=== PATIENT | male | born 1950 | race African-American/Black ===

== ENCOUNTER 2019-02-24 21:07 | Emergency (ER) | payer MEDICARE, OTHER ==
[~2019-02-24] VITALS: Ht 170.2 cm; Wt 79.4 kg
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
--- NOTE | 2019-02-24 23:23 | NUR ---
LEFT FOR CT
--- NOTE | 2019-02-25 00:43 | NUR ---
Patient is resting comfortably in bed with eyes closed. Easily aroused. VSS
--- NOTE | 2019-02-25 01:40 | NUR ---
Patient discharged to home in stable condition. Rx and Written and verbal after care instructions given. Patient verbalizes understanding of instruction. pt was provided with the cd of his CT scan.
[2019-02-25 01:41] VITALS: BP 141/98
== END 2019-02-25 01:42 | disposition home or self-care (01) ==
LOC: ER 21:10
DX: S02.2XXA Fracture of nasal bones, initial encounter for closed fracture (principal); S02.40CA Maxillary fracture, right side, initial encounter for closed fracture; R51 Headache; F17.200 Nicotine dependence, unspecified, uncomplicated; Z98.890 Other specified postprocedural states; Z88.0 Allergy status to penicillin; Y08.89XA Assault by other specified means, initial encounter; Y93.89 Activity, other specified; Y92.488 Other paved roadways as the place of occurrence of the external cause; Y99.8 Other external cause status
CPT/HCPCS: 70450-TC; 70486-TC

== ENCOUNTER 2019-06-23 23:11 | Inpatient (IN) | payer MEDICARE, MEDICAID ==
[~2019-06-23] VITALS: Ht 170.2 cm; Wt 84.8 kg
--- NOTE | 2019-06-23 23:20 | NUR ---
BIB EMS C/O SEIZURE, (+) ORAL TRAUMA, (-) BOWEL OR BLADDER INCONTINENCE. PT POST ICTAL, AAOX2. PLACED ON A MONITOR. VSS. WILL CONT TO MONITOR ,
[2019-06-23] MEDS ORDERED: LEVETIRACETAM (500MG) 500 MG in IV NS 0.9% 100 ML IV ONE (23:30)
[2019-06-23] MEDS ORDERED: LORAZEPAM INJ 2 MG/ML VIAL IVP ONE (23:30)
[2019-06-23] MEDS ORDERED: IV NS 0.9% 1,000 ML BAG IV ONE (23:30)
[2019-06-23 23:32] LABS: BASOPHILS # (AUTO) 0.1 /CMM (0.0-0.2); BASOPHILS % (AUTO) 0.9 % (0.0-2.0); EOSINOPHILS % (AUTO) 2.2 % (0.0-6.0); HEMATOCRIT 44 % (39-51); HEMOGLOBIN 14.8 g/dL (13.5-17.5); LYMPHOCYTES # (AUTO) 3.4 /CMM (0.8-4.8); LYMPHOCYTES % (AUTO) 42.1 % (20.0-44.0); MEAN CORPUSCULAR HGB CONC 34 g/dl (31.0-36.0); MEAN CORPUSCULAR VOLUME 99 fL (80-96); MONOCYTES # (AUTO) 0.8 /CMM (0.1-1.30); MONOCYTES % (AUTO) 10.4 % (2.0-12.0); NEUTROPHILS # (AUTO) 3.6 /CMM (1.8-8.9); NEUTROPHILS % (AUTO) 44.4 % (43.0-81.0); PLATELET COUNT (AUTO) 232 /CMM (150-450); RED BLOOD CELL COUNT(AUTO) 4.46 MIL/uL (4.5-6.0)
[2019-06-23 23:42] LABS: CARBON DIOXIDE 23 mmol/L (21-32); CHLORIDE 103 mmol/L (98-107); CREATININE 1.4 mg/dL (0.6-1.3); GLUCOSE 173 mg/dL (74-106); POTASSIUM 3.8 mmol/L (3.5-5.1); SODIUM SERUM 140 mmol/L (136-145); UREA NITROGEN, BLOOD 20 mg/dL (7-18)
[2019-06-23] MEDS ORDERED: LEVETIRACETAM (500MG) 500 MG/5 ML VIAL IV ONE (23:46)
[2019-06-23] MEDS ORDERED: LORAZEPAM INJ 2 MG/ML VIAL ONE (23:46)
[2019-06-23 23:51] LABS: ALANINE AMINOTRANSFERASE 47 U/L (12-78); ALBUMIN 3.5 g/dL (3.4-5.0); ALCOHOL, BLOOD < 3 mg/dL (0-0); ALKALINE PHOSPHATASE 98 U/L (46-116); ASPARTATE AMINOTRANSFERASE 27 U/L (15-37); BILIRUBIN,DIRECT 0.1 mg/dL (0.0-0.2); BILIRUBIN,TOTAL 0.2 mg/dL (0.2-1.0)
[2019-06-24] MEDS ORDERED: ASPIRIN 325 MG TABLET PO ONE
--- NOTE | 2019-06-24 00:31 | NUR ---
TELE 806-4
--- NOTE | 2019-06-24 00:32 | NUR ---
PER PT'S SISTER , HE IS NOT TAKING ANY MEDICATION AT HOME
--- NOTE | 2019-06-24 00:36 | NUR ---
REPORT GIVEN TO ANASTACIO ON THID FLOOR
--- NOTE | 2019-06-24 00:51 | NUR ---
SISTER, DERRELL: [facility]
[2019-06-24] MEDS ORDERED: IV D5/0.45 NACL 1,000 ML IV PRN (01:27)
[2019-06-24] MEDS ORDERED: Z GUARD REMEDY 2 OZ OINT TP PRN (01:30)
[2019-06-24] MEDS ORDERED: ONDANSETRON HCL/PF 4 MG/2 ML VIAL IVP PRN (01:30)
[2019-06-24] MEDS ORDERED: ACETAMINOPHEN 650 MG/SUPP.RECT RC PRN (01:30)
[2019-06-24] MEDS ORDERED: LORAZEPAM INJ 2 MG/ML VIAL IV PRN (01:30)
[2019-06-24] MEDS ORDERED: MORPHINE SULFATE INJ 2 MG/ML DISP.SYRIN IV PRN (01:30)
[2019-06-24 01:40] VITALS: BP 148/97
--- NOTE | 2019-06-24 01:50 | NUR ---
PT WAS TRANSFERRED TO 326- UNDER ACLS
[2019-06-24] MEDS ORDERED: LEVETIRACETAM (500MG) 500 MG in IV NS 0.9% 100 ML IV SCH ×2 (02:00→11:00)
--- NOTE | 2019-06-24 02:00 | NUR ---
MILK PICKUP DRIVERASSISTED LIVING HOME DIRECTOR NOTES RECEIVED PATIENT FROM ER VIA RNEY ACCOMPANIED BY ER STAFF. ALERT AND ORIENTED X 2, VERBALLY RESPONSIVE BUT UNCOOPERATIVE ON ASSESSMENT. BREATHING REGULAR AND UNLABORED ON ROOM AIR. RIGHT FOREARM G20 IV LINE INTACT AND PATENT, FLUSHING WELL WITH NO BLEEDING OR S/S OF INFECTION/INFILTRATION NOTED. ATTACHED TO ORACLE OBIEE DEVELOPER WITH NSR WITH ST DEPRESSION AT 89bpm. BODY ASSESSMENT DONE BUT UNABLE TO ASSESS LOWER PART OF THE BODY PATIENT REFUSED TO REMOVE HIS PANTS. RISK AND BENEFITS EXPLAINED. ON SEIZURE PRECAUTION, SIDE RAILS PADDED WITH BLANKETS. NPO ADVISED. INITIAL VITAL SIGNS TAKEN, BELONGINGS CHECKED BY REAMING MACHINE OPERATOR. BED LOW AND LOCKED ON SEMI FOWLERS POSITION. CALL LIGHT IN REACH. WILL CONTINUE TO MONITOR.
[2019-06-24 02:42] VITALS: BP 148/97
--- NOTE | 2019-06-24 03:30 | NUR ---
GRIEVANCE AND APPEALS COORDINATOR NOTES STARTED ON D5 1/2 NS AT 75CC/HR, INFUSING WELL. WILL CONTINUE TO MONITOR.
[2019-06-24 04:00] VITALS: BP 117/69
--- NOTE | 2019-06-24 06:17 | NUR ---
COORDINATOR OF PLACEMENT CLOSING NOTES PATIENT IN BED ALERT AND ORIENTED X 3. AFEBRILE WITH NO S/S OF DISTRESS OBSERVED. MAINTAINED NPO AND ATTACHED TO LAUNCH OPERATOR WITH NSR WITH ST DEPRESSION AT 88bpm. NO COMPLAINTS OF PAIN/DISCOMFORT REPORTED WITHIN THE SHIFT. BED LOW AND LOCKED ON SEMI FOWLERS POSITION. CALL LIGHT IN REACH. WILL ENDORSE TO MORNING SHIFT FOR ZBIGNIEW.
--- NOTE | 2019-06-24 07:35 | NUR ---
REAL ESTATE PARALEGAL OPENING NOTES: RECEIVED PATIENT RESTING IN BED COMFORTABLY. PATIENT IS STABLE AND NO S/S OF DISTRESS OR SOB. BREATHING REGULAR AND UNLABORED ON ROOM AIR. A/O X 2, VERBALLY RESPONSIVE. ABLE TO MAKE NEEDS KNOWN. NO COMPLAINS OF PAIN AT THIS TIME. IV ACCESS ON THE RIGHT FOREARM G20 IS CLEAN, INTACT AND PATENT, FLUSHING WELL WITH NO S/S OF INFECTION/INFILTRATION NOTED. ON TELE MONITORING WITH READING OF SR WITH HR OF 70'S. ON SEIZURE PRECAUTION, SIDE RAILS PADDED WITH BLANKETS. ON NPO DIET. SAFETY MEASURES ARE IN PLACE WITH BED IN LOW AND LOCKED ON SEMI FOWLERS POSITION. CALL LIGHT IN REACH. WILL CONTINUE TO MONITOR ACCORDINGLY.
[2019-06-24 08:00] VITALS: BP 128/78
[2019-06-24] MEDS ORDERED: ASPIRIN 81 MG TAB.CHEW PO SCH (09:00)
[2019-06-24] MEDS ORDERED: IV NS 0.9% 1,000 ML IV PRN (09:11)
[2019-06-24] MEDS ORDERED: ATORVASTATIN 10 MG TABLET PO SCH (09:30)
[2019-06-24] MEDS ORDERED: METOPROLOL TARTRATE 50 MG TABLET PO SCH (09:30)
[2019-06-24] MEDS ORDERED: ENOXAPARIN SODIUM 40 MG/0.4 ML DISP.SYRIN SQ SCH (09:30)
[2019-06-24 11:00] VITALS: BP 128/78
[2019-06-24 13:16] LABS: BASOPHILS # (AUTO) 0.1 /CMM (0.0-0.2); BASOPHILS % (AUTO) 1.3 % (0.0-2.0); EOSINOPHILS % (AUTO) 2.2 % (0.0-6.0); HEMATOCRIT 43 % (39-51); HEMOGLOBIN 14.4 g/dL (13.5-17.5); LYMPHOCYTES # (AUTO) 1.8 /CMM (0.8-4.8); LYMPHOCYTES % (AUTO) 28.7 % (20.0-44.0); MEAN CORPUSCULAR HGB CONC 34 g/dl (31.0-36.0); MEAN CORPUSCULAR VOLUME 98 fL (80-96); MONOCYTES # (AUTO) 0.7 /CMM (0.1-1.30); MONOCYTES % (AUTO) 11.7 % (2.0-12.0); NEUTROPHILS # (AUTO) 3.6 /CMM (1.8-8.9); NEUTROPHILS % (AUTO) 56.1 % (43.0-81.0); PLATELET COUNT (AUTO) 239 /CMM (150-450); RED BLOOD CELL COUNT(AUTO) 4.33 MIL/uL (4.5-6.0); WHITE BLOOD COUNT (AUTO) 6.4 K/uL (4.3-11.0)
[2019-06-24 13:28] LABS: ALBUMIN 3.1 g/dL (3.4-5.0); BILIRUBIN,TOTAL 0.4 mg/dL (0.2-1.0); CALCIUM, SERUM 8.5 mg/dL (8.5-10.1); PHOSPHORUS 2.6 mg/dL (2.5-4.9); POTASSIUM 3.8 mmol/L (3.5-5.1); TOTAL PROTEIN, SERUM 7.4 g/dL (6.4-8.2)
[2019-06-24 13:38] LABS: THYROID STIMULATING HORMONE 0.958 uIU/mL (0.358-3.74)
[2019-06-24] MEDS ORDERED: IOHEXOL-350 100 ML VIAL IV ONE (14:05)
[2019-06-24] MEDS ORDERED: CT SWABBABLE VALVE TRANS SET 1 EA INFUS.SET MC ONE (14:08)
[2019-06-24] MEDS ORDERED: IV NS 0.9% 250 ML IV ONE (14:08)
[2019-06-24] MEDS ORDERED: NITROGLYCERIN 0.4 MG/TAB BOTTLE SL ONE (14:30)
[2019-06-24] MEDS ORDERED: METOPROLOL TARTRATE INJ 5 MG/5 ML AMPUL IVP PRN (14:30)
--- NOTE | 2019-06-24 14:32 | NUR ---
Patient refused Nitro during the coronary CTA procedure.
[2019-06-24 15:09] LABS: THYROID STIMULATING HORMONE 0.975 uIU/mL (0.358-3.74)
--- NOTE | 2019-06-24 17:30 | NUR ---
RAILROAD MECHANIC NOTES PATIENT REQUESTS TO LEAVE AMA DESPITE EXPLANATION OF RISKS AND BENEFITS, STATES FRIEND WILL COME TO PICK HIM UP.
--- NOTE | 2019-06-24 17:44 | NUR ---
EDUCATION FACULTY MEMBER NOTES PATIENT SIGNED FORM TO LEAVE AMA DESPITE EXPLANATION OF RISKS. FRIEND AT BEDSIDE TRIED TO CONVINCED PATIENT TO STAY, ALSO PATIENT SPOKE TO SISTER PATIENT DEMANDS TO LEAVE AMA. PERIPHERAL IV REMOVED WITH MINIMAL BLEEDING, ID BAND REMOVED PATIENT LEFT WITH FRIEND.
[2019-06-25] MEDS ORDERED: ASPIRIN EC 81 MG TABLET.DR PO SCH (09:00)
[2019-06-25 11:58] LABS: *SPE A/G RATIO 0.8 (0.7-1.7); *SPE ALPHA-1-GLOBULIN 0.3 g/dL (0.0-0.4); *SPE ALPHA-2-GLOBULIN 0.7 g/dL (0.4-1.0); *SPE GLOBULIN, TOTAL 3.6 g/dL (2.2-3.9); *SPE M-SPIKE Not Observed g/dL (Not Observed); *SPEGAMMA GLOBULIN 1.6 g/dL (0.4-1.8)
== END 2019-06-24 18:19 | disposition left against medical advice (07) | DRG 100 ==
LOC: ER 23:13 → TELE 06-24 01:20
PROVIDERS: ADMIT Hospitalist; ATTEND Hospitalist
DX: G40.409 Other generalized epilepsy and epileptic syndromes, not intractable, without status epilepticus (principal); I21.A1 Myocardial infarction type 2; N17.0 Acute kidney failure with tubular necrosis; E44.1 Mild protein-calorie malnutrition; I10 Essential (primary) hypertension; Z88.0 Allergy status to penicillin; E78.5 Hyperlipidemia, unspecified; F17.200 Nicotine dependence, unspecified, uncomplicated; Z82.49 Family history of ischemic heart disease and other diseases of the circulatory system
CPT/HCPCS: 36415; 70450-TC; 71045-TC; 75574; 80048-TC; 80053-TC; 80061-TC; 80076-TC; 83735-TC; 83880; 84100-TC; 84155; 84165; 84439-TC; 84443-TC; 84484-TC; 85025-TC; 87081-TC; 95819-TC; G0378; G0480; J1650; J1953; J2060; J3490; J7030; J7050; Q9967

== ENCOUNTER 2019-06-24 19:27 | Inpatient (IN) | payer MEDICARE, MEDICAID ==
[~2019-06-24] VITALS: Ht 170.2 cm; Wt 80.3 kg
--- NOTE | 2019-06-24 19:50 | NUR ---
BIBS.C/O "ADMITTED LAST NIGHT FOR NEW ONSET SZ AND ELEVATED TROPONIN. C/O ABD PAIN"-SOB NOTED. VSS. AOX4.
[2019-06-24 20:21] LABS: BASOPHILS % (AUTO) 0.5 % (0.0-2.0); EOSINOPHILS % (AUTO) 1.7 % (0.0-6.0); HEMATOCRIT 42 % (39-51); HEMOGLOBIN 14.2 g/dL (13.5-17.5); LYMPHOCYTES # (AUTO) 2.3 /CMM (0.8-4.8); LYMPHOCYTES % (AUTO) 30.6 % (20.0-44.0); MEAN CORPUSCULAR HGB CONC 34 g/dl (31.0-36.0); MEAN CORPUSCULAR VOLUME 99 fL (80-96); MONOCYTES # (AUTO) 0.8 /CMM (0.1-1.30); MONOCYTES % (AUTO) 11.2 % (2.0-12.0); NEUTROPHILS # (AUTO) 4.2 /CMM (1.8-8.9); PLATELET COUNT (AUTO) 228 /CMM (150-450); RED BLOOD CELL COUNT(AUTO) 4.25 MIL/uL (4.5-6.0); WHITE BLOOD COUNT (AUTO) 7.6 K/uL (4.3-11.0)
[2019-06-24 20:47] LABS: ALBUMIN 3.2 g/dL (3.4-5.0); BILIRUBIN,TOTAL 0.3 mg/dL (0.2-1.0); CALCIUM, SERUM 8.4 mg/dL (8.5-10.1); POTASSIUM 3.9 mmol/L (3.5-5.1); TOTAL PROTEIN, SERUM 7.6 g/dL (6.4-8.2)
--- NOTE | 2019-06-24 20:59 | NUR ---
EPIC GLUE SPREADING MACHINE OPERATOR PAGED
[2019-06-24] MEDS ORDERED: ASPIRIN 325 MG TABLET PO ONE (21:00)
--- NOTE | 2019-06-24 21:25 | NUR ---
RECIEVED BED 109
[2019-06-24] MEDS ORDERED: MORPHINE SULFATE INJ 2 MG/ML DISP.SYRIN IV PRN (21:30)
[2019-06-24] MEDS: METOPROLOL TARTRATE 50 MG TABLET PO SCH (21:30)
[2019-06-24] MEDS ORDERED: MAG HYDROX/AL HYDROX/SIMETH 30 ML UDC PO PRN (21:30)
[2019-06-24] MEDS ORDERED: NITROGLYCERIN 0.4 MG/TAB BOTTLE SL ONE (21:30)
[2019-06-24] MEDS ORDERED: HYDROCODONE/APAP 5/325MG 1 EACH TABLET PO PRN (21:30)
[2019-06-24] MEDS ORDERED: MAGNESIUM HYDROXIDE 30 ML UDC PO PRN (21:30)
[2019-06-24] MEDS ORDERED: ACETAMINOPHEN 325 MG TABLET PO PRN (21:30)
[2019-06-24] MEDS ORDERED: ONDANSETRON HCL/PF 4 MG/2 ML VIAL IVP PRN (21:30)
--- NOTE | 2019-06-24 21:38 | NUR ---
REPORT GIVEN TO BRANDAN
[2019-06-24 22:00] VITALS: BP 125/84
[2019-06-24] MEDS ORDERED: ATORVASTATIN 10 MG TABLET PO SCH (22:00)
--- NOTE | 2019-06-24 22:30 | NUR ---
MANUFACTURING PROJECT ENGINEER ADMITTING NOTES RECEIVED PATIENT FROM ER & ADMITTED TO ROOM 109 W/ DX ABDOMINAL PAIN & ELEVATED TROPONIN UNDER CARE OF DEANNA. PATIENT NOTED W/ STEADY GAIT WHEN TRANSFERRING FROM RNEY TO BED. A/A/O X3 & ABLE TO ANSWER QUESTIONS & FOLLOW SIMPLE COMMANDS. BREATHING EVEN & UNLABORED, TOLERATING ROOM AIR. DENIES ANY SOB OR DIFFICULTY BREATHING. SINUS RHYTHM-SINUS SHERRY NOTED ON TELEMONITOR, HR 56. LEFT AC IV #18 INTACT & PATENT W/ DRESSING CDI & SALINE LOCKED. NO SIGNS OF INFILTRATION NOTED. DENIES ANY CHEST PAIN OR DISCOMFORT. DENIES ANY N/V/D. STATES THAT ABDOMINAL PAIN GOT BETTER. SKIN ASSESSMENT DONE & ORIENTED TO ROOM & STAFF. SAFETY MEASURES IN PLACE W/ SIDE RAILS UP & BED ALARM ON. CALL LIGHT PLACED WITHIN REACH & INSTRUCTED TO CALL FOR ASSISTANCE. WILL CONTINUE TO MONITOR & CARRY OUT ADMITTING ORDERS.
--- NOTE | 2019-06-24 22:45 | NUR ---
CONTROLLED AREA CHECKER NOTES NOTED W/ EPISODES OF BRADYCARDIA IN 50S & DENIES ANY CHEST PAIN OR DISCOMFORT. INFORMED DEANNA, DETECTIVE INVESTIGATOR THAT SUBLINGUAL NITRO & METOPROLOL HELD & PER OKAY TO HOLD @ THIS TIME & WILL RE-EVALUATE IN AM.
[2019-06-24 23:31] VITALS: BP 125/84
[2019-06-25] VITALS (21 sets, daily range): BP systolic 115–153; BP diastolic 42–97
--- NOTE | 2019-06-25 08:04 | NUR ---
RN OPENING NOTES PT RESTING IN BED. PT IS A/A X3. PT DENIES ANY SOB OR PAIN AT PRESENT MOMENT. PT HR IS SB 58 CURRENTLY. PT STATES HE IS FEELING WELL RESTED. BED IS LOCKED AND IN LOWEST POSITION WITH CALL LIGHT IN REACH. WILL CONTINUE TO MONITOR.
--- NOTE | 2019-06-25 08:08 | NUR ---
SPOKE WITH ESTEFANIA MAC PT IS TO BE NPO BY DR. JUARES.
[2019-06-25] MEDS: PANTOPRAZOLE 40 MG TABLET.DR PO SCH (08:12)
[2019-06-25] MEDS: ASPIRIN 81 MG TAB.CHEW PO SCH (08:12)
[2019-06-25] MEDS: METOPROLOL TARTRATE 50 MG TABLET PO SCH ×2 (09:30→21:23)
[2019-06-25 10:36] LABS: HEMOGLOBIN 15.1 g/dL (13.5-17.5); PLATELET COUNT (AUTO) 228 /CMM (150-450)
[2019-06-25 10:42] LABS: BASOPHILS # (AUTO) 0.1 /CMM (0.0-0.2); BASOPHILS % (AUTO) 1.2 % (0.0-2.0); EOSINOPHILS % (AUTO) 1.8 % (0.0-6.0); HEMATOCRIT 44 % (39-51); LYMPHOCYTES # (AUTO) 1.9 /CMM (0.8-4.8); LYMPHOCYTES % (AUTO) 34.7 % (20.0-44.0); MEAN CORPUSCULAR HGB CONC 34 g/dl (31.0-36.0); MEAN CORPUSCULAR VOLUME 98 fL (80-96); MONOCYTES # (AUTO) 0.6 /CMM (0.1-1.30); NEUTROPHILS # (AUTO) 2.9 /CMM (1.8-8.9); NEUTROPHILS % (AUTO) 51.3 % (43.0-81.0); RED BLOOD CELL COUNT(AUTO) 4.46 MIL/uL (4.5-6.0); WHITE BLOOD COUNT (AUTO) 5.6 K/uL (4.3-11.0)
[2019-06-25 10:53] LABS: CALCIUM, SERUM 8.6 mg/dL (8.5-10.1); CREATININE 0.9 mg/dL (0.6-1.3); MAGNESIUM 1.9 mg/dL (1.8-2.4); PHOSPHORUS 2.7 mg/dL (2.5-4.9); POTASSIUM 4.1 mmol/L (3.5-5.1)
--- NOTE | 2019-06-25 11:20 | NUR ---
SPOKE WITH MD ABOUT INCREASED TROPONIN LEVELS. NO NEW ORDERS GIVEN CARDIOLOGY ALREADY CONSULTING.
[2019-06-25] MEDS ORDERED: IODIXANOL 150 ML IV ONE (13:27)
[2019-06-25] MEDS ORDERED: NITROGLYCERIN ICAR 1,000 MCG/10 ML VIAL ICAR ONE (13:27)
[2019-06-25] MEDS ORDERED: VERAPAMIL HCL IV 5 MG/2 ML VIAL ONE (13:27)
[2019-06-25] MEDS ORDERED: HEPARIN SODIUM, PORCINE 5000 UNITS/1 ML VIAL ONE (13:27)
[2019-06-25] MEDS ORDERED: LIDOCAINE HCL/PF 1% 30 ML SDV ONE (13:27)
[2019-06-25] MEDS ORDERED: FENTANYL PF 100MCG/2ML AMPUL ONE (13:30)
[2019-06-25] MEDS ORDERED: MIDAZOLAM HCL 2 MG/2ML VIAL ONE (13:30)
[2019-06-25] MEDS ORDERED: IV SET PRIMARY 1 EA INFUS.SET MC ONE (13:31)
[2019-06-25] MEDS ORDERED: IV NS 0.9% 1,000 ML ONE (13:31)
--- NOTE | 2019-06-25 14:20 | NUR ---
ADRIENNE CALLED FROM HUMAN SERVICES MANAGER REPORTED PT WILL BE TRANSFERRED TO ICU ROOM 254.
--- NOTE | 2019-06-25 14:25 | NUR ---
REPORT RECEIVED FROM LABS FOR TROPINON LEVEL OF PATIENT, INFORMED RACHAEL PONCE. Addendum: 06/25/19 at 1427 by KENDRICK JIMÉNEZ RN @1111
--- NOTE | 2019-06-25 15:12 | NUR ---
RN PEDIATRIC: got pt after cathlab, reported by RACHAEL Silver, stent was not placed, pt.is with TR band monitoring and air relieve per order/protocol, pt is A/Ox4, no pain, no c/o, O2sat. over 95%, SR, SBP over 100 below 150, no bleeding signs under TR band now, will start air remove at 1530, IVF NS@100ml/h x5 hrs started per order
--- NOTE | 2019-06-25 15:40 | NUR ---
RN LIAISON: removed air 3 ml with charge nurse, no bleeding, good R.wrist pulse pulpation, no pain, fells B.hands cold/warmed
--- NOTE | 2019-06-25 15:52 | NUR ---
REPORT GIVEN TO ICU NURSE FOR ZBIGNIEW.
--- NOTE | 2019-06-25 15:55 | NUR ---
MATERIAL PLANNING ANALYST: removed 5ml air from TRband, no bleeding
--- NOTE | 2019-06-25 16:13 | NUR ---
CLINICAL PHARMACY COORDINATOR: removed 5ml air, no bleeding
--- NOTE | 2019-06-25 16:33 | NUR ---
HARDWOOD FLOORING SPECIALIST: removed last 4 ml air, R.TR band with charge nurse, no bleeding, applied tegaderm, continue monitoring
--- NOTE | 2019-06-25 18:09 | NUR ---
CONTAINER SHOP WELDER: dressing is intact, no bleeding, no pain, no c/o
--- NOTE | 2019-06-25 19:51 | NUR ---
RN NOTES RECEIVED PATIENT AWAKE IN BED, ALERT AND ORIENTED. AMBULATORY. ABLE TO VERBALIZE NEEDS. NO DISTRESS NOTED. BREATHING EVEN AND UNLABORED. COMPLAINING OF IRRITABILITY WITH ALL THE MONITORING DEVICES ATTACHED TO HIM. WANTS TO BE TRANSFERRED TO A LOWER LEVEL OF CARE. CALLED RECEPTIONIST TELEPHONE OPERATOR DR. HUERTA, REFFERED TO CARDIOLOGY FOR APPROVAL. TRANSFER APPROVED BY DR SOLANO. TRANSFER ORDER DONE. COORDINATED WITH NURSING RESUME SPECIALIST. TRANSFERRED PATIENT TO ZOE/TELE ROOM 103. ENDORSED TO DOTTIE CANO AT 0130.
[2019-06-25] MEDS: LEVETIRACETAM (250 MG) 250 MG TABLET PO SCH (21:22)
[2019-06-25] MEDS ORDERED: ATORVASTATIN 40 MG TABLET PO SCH (22:00)
[2019-06-26] VITALS: BP 131/72
[2019-06-26 01:00] VITALS: BP 127/71
--- NOTE | 2019-06-26 01:15 | NUR ---
RN NOTE: RECEIVED REPORT FROM SHIVAM TRANSIT PLANNING DIRECTOR.
[2019-06-26 01:30] VITALS: BP 117/80
--- NOTE | 2019-06-26 01:30 | NUR ---
ASSISTANT FARM OPERATIONS MANAGER NOTE: RECEIVED PATIENT TRANSFERRED FROM ICU. A&OX4. NO RESPIRATORY DISTRESS. NO C/O CHEST PAIN. PATIENT AMBULATORY WITH ASSIST. UNSTEADY GAIT. V/S TAKEN. PLACED ON OLD COIN DEALER SHOWING SINUS BRADYCARDIA INVERTED T WAVE WITH HR 55. ALL NEEDS MET AND ATTENDED. SAFETY AND SEIZURE PRECAUTIONS IMPLEMENTED. PADDED SIDE RAILS. BED LOCKED AND IN LOWEST POSITION. CALL LIGHT PLACED WITHIN REACH. WILL CONT. TO MONITOR.
[2019-06-26 04:00] VITALS: BP 139/93
--- NOTE | 2019-06-26 06:40 | NUR ---
RN CLOSING NOTES: PATIENT IN BED, ASLEEP, BUT EASILY AROUSABLE. NO RESPIRATORY DISTRESS. NO C/O CHEST PAIN. SAFETY AND SEIZURE PRECAUTIONS IMPLEMENTED. ALL NEEDS ATTENDED. CALL LIGHT WITHIN REACH. WILL ENDORSE TO AM SHIFT NURSE FOR CONTINUITY OF CARE.
[2019-06-26] MEDS: PANTOPRAZOLE 40 MG TABLET.DR PO SCH (07:32)
[2019-06-26 08:00] VITALS: BP 124/76
[2019-06-26] MEDS: LEVETIRACETAM (250 MG) 250 MG TABLET PO SCH (08:41)
[2019-06-26] MEDS: ASPIRIN 81 MG TAB.CHEW PO SCH (08:41)
[2019-06-26] MEDS: METOPROLOL TARTRATE 50 MG TABLET PO SCH (08:41)
[2019-06-26] MEDS ORDERED: CARVEDILOL 6.25 MG TABLET PO SCH (09:30)
--- NOTE | 2019-06-26 09:37 | NUR ---
RN NOTE 0715: Received patient awake, A/O x3. No c/o discomfort, no CP noted at this time. PIV intact. 0900: S/E by Dr. Guerrero. 0935: No any significant changes noted at this time. Kept clean, warm and dry. Needs attended. Kept call light at reach.
[2019-06-26 12:00] VITALS: BP 113/66
[2019-06-26] MEDS ORDERED: CARV6.252 PO (13:05)
[2019-06-26] MEDS ORDERED: ATOR40TA PO (13:05)
[2019-06-26] MEDS ORDERED: ASPI-1169 PO (13:05)
[2019-06-26] MEDS ORDERED: LEVE250T2 PO (13:05)
--- NOTE | 2019-06-26 14:15 | NUR ---
RN NOTE S/E by Dr. Cleveland, with order to may DC home and F/U with cardio 1-2 weeks outpatient/ MD office, given details of Dr. Guerrero's office. Discussed re: medications and side effects and recommended diet, patient ans sister's at bedside, verbalized understanding and gratitude. Patient verbalized he had EEG last week already. VSS. Kept clean, warm and dry. Needs attended. Accompanied to lobby via wheelchair, no any significant changes. Offered Flu vac but patient refused, given reading materials. Trold him to go to MD's office when he changes his mind.
--- NOTE | 2019-06-26 14:23 | NUR ---
RN NOTE Removed LAC PIV, no bleeding noted, applied pressure and dry dressing.
== END 2019-06-26 14:15 | disposition home or self-care (01) | DRG 281 ==
LOC: ER 19:27 → TELE1 21:55 → ICU 06-25 14:35 → TELE1 06-26 01:40
PROVIDERS: ADMIT Nurse Practitioner Acute Care; ATTEND Hospitalist
PROC: 4A023N7 Measurement of Cardiac Sampling and Pressure, Left Heart, Percutaneous Approach (ICD-10-PCS; principal; 2019-06-25)
PROC: B211YZZ Fluoroscopy of Multiple Coronary Arteries using Other Contrast (ICD-10-PCS; 2019-06-25)
PROC: B215YZZ Fluoroscopy of Left Heart using Other Contrast (ICD-10-PCS; 2019-06-25)
DX: I21.4 Non-ST elevation (NSTEMI) myocardial infarction (principal); E44.1 Mild protein-calorie malnutrition; K42.9 Umbilical hernia without obstruction or gangrene; R56.9 Unspecified convulsions; I10 Essential (primary) hypertension; E78.5 Hyperlipidemia, unspecified; F17.200 Nicotine dependence, unspecified, uncomplicated; F10.10 Alcohol abuse, uncomplicated; Z88.0 Allergy status to penicillin; Y90.1 Blood alcohol level of 20-39 mg/100 ml; Z98.890 Other specified postprocedural states; R73.9 Hyperglycemia, unspecified; Z91.19 Patient's noncompliance with other medical treatment and regimen; Z82.49 Family history of ischemic heart disease and other diseases of the circulatory system; Z79.899 Other long term (current) drug therapy; Z93.0 Tracheostomy status
CPT/HCPCS: 36415; 70450-TC; 71045-TC; 75574; 80048-TC; 80053-TC; 80061-TC; 80076-TC; 83735-TC; 83880; 84100-TC; 84155; 84165; 84439-TC; 84443-TC; 84484-TC; 85025-TC; 87081-TC; 93452; 95819-TC; C1887; G0378; G0480; J1644; J1650; J1953; J2060; J2250; J3010; J3490; J7030; J7050; Q9967

== ENCOUNTER 2019-07-18 02:34 | Emergency (ER) | payer MEDICARE, MEDICAID ==
[~2019-07-18] VITALS: Ht 177.8 cm; Wt 79.4 kg
[~2019-07-18 02:34] MED LIST: ASPI-1169 PO; ATOR40TA PO; CARV6.252 PO; LEVE250T2 PO
--- NOTE | 2019-07-18 02:44 | NUR ---
BLOOD DRAWN AND SENT TO LAB.
--- NOTE | 2019-07-18 02:58 | NUR ---
PT CAME TO ER BIB RA C/O POSTICTAL FOLLOWING A WITNESSED SEIZURE FOR ABOUT 1 MINUTE. PT WAS SMOKING MARIJUANA AND ALCOHOL, PER EMS. AAOX4. NOT IN ANY DISTRESS. NO SOB. BREATHING EVENLY AND UNLABORED. CONNECTED TO MONITOR. SEIZURE PRECAUTIONS INITIATED UPON ARRIVAL.
[2019-07-18 03:00] LABS: BASOPHILS # (AUTO) 0.1 /CMM (0.0-0.2); BASOPHILS % (AUTO) 0.9 % (0.0-2.0); EOSINOPHILS % (AUTO) 4.1 % (0.0-6.0); HEMATOCRIT 40 % (39-51); HEMOGLOBIN 13.9 g/dL (13.5-17.5); LYMPHOCYTES # (AUTO) 1.8 /CMM (0.8-4.8); LYMPHOCYTES % (AUTO) 31.4 % (20.0-44.0); MEAN CORPUSCULAR HGB CONC 34 g/dl (31.0-36.0); MEAN CORPUSCULAR VOLUME 98 fL (80-96); MONOCYTES # (AUTO) 0.7 /CMM (0.1-1.30); MONOCYTES % (AUTO) 11.8 % (2.0-12.0); NEUTROPHILS # (AUTO) 2.9 /CMM (1.8-8.9); NEUTROPHILS % (AUTO) 51.8 % (43.0-81.0); PLATELET COUNT (AUTO) 218 /CMM (150-450); RED BLOOD CELL COUNT(AUTO) 4.15 MIL/uL (4.5-6.0); WHITE BLOOD COUNT (AUTO) 5.7 K/uL (4.3-11.0)
[2019-07-18] MEDS ORDERED: IV NS 0.9% 500 ML BAG IV ONE (03:00)
[2019-07-18 03:06] LABS: CALCIUM, SERUM 9.1 mg/dL (8.5-10.1); CARBON DIOXIDE 23 mmol/L (21-32); CHLORIDE 105 mmol/L (98-107); CREATININE 1.1 mg/dL (0.6-1.3); GLUCOSE 164 mg/dL (74-106); POTASSIUM 4.4 mmol/L (3.5-5.1); SODIUM SERUM 141 mmol/L (136-145); UREA NITROGEN, BLOOD 14 mg/dL (7-18)
[2019-07-18 03:10] LABS: ALANINE AMINOTRANSFERASE 39 U/L (12-78); ALBUMIN 3.1 g/dL (3.4-5.0); ALCOHOL, BLOOD < 3 mg/dL (0-0); ALKALINE PHOSPHATASE 92 U/L (46-116); ASPARTATE AMINOTRANSFERASE 35 U/L (15-37); BILIRUBIN,TOTAL 0.2 mg/dL (0.2-1.0); TOTAL PROTEIN, SERUM 7.4 g/dL (6.4-8.2)
--- NOTE | 2019-07-18 03:21 | NUR ---
TAKEN TO CT.
--- NOTE | 2019-07-18 03:36 | NUR ---
RETURNED FROM CT.
--- NOTE | 2019-07-18 03:40 | NUR ---
XRAY TAKEN AT BEDSIDE.
--- NOTE | 2019-07-18 04:26 | NUR ---
IV removed. Catheter intact and site benign. Pressure and 4x4 applied to site. No bleeding noted. Patient discharged to home in stable condition. Written and verbal after care instructions given. Patient verbalizes understanding of instruction. Patient is ambulatory with a steady gait.
[2019-07-18 04:45] VITALS: BP 138/76
== END 2019-07-18 04:46 | disposition home or self-care (01) ==
LOC: ER 02:40
DX: R56.9 Unspecified convulsions (principal); R94.31 Abnormal electrocardiogram [ECG] [EKG]; F12.10 Cannabis abuse, uncomplicated; R79.89 Other specified abnormal findings of blood chemistry; I10 Essential (primary) hypertension; F17.200 Nicotine dependence, unspecified, uncomplicated; Z98.890 Other specified postprocedural states; Z93.0 Tracheostomy status; Z88.0 Allergy status to penicillin; Z79.899 Other long term (current) drug therapy; Z79.82 Long term (current) use of aspirin
CPT/HCPCS: 36415; 70450; 71045; 80048; 80076; 80305; 80307; 84484; 85025; 85730; 93005; 99284; J7040; G0480

== ENCOUNTER 2019-09-12 00:01 | Emergency (ER) | payer MEDICARE, OTHER, MEDICAID ==
[~2019-09-12] VITALS: Ht 175.3 cm; Wt 86.6 kg
--- NOTE | 2019-09-12 00:21 | NUR ---
PT CAME TO ER BIB RA TO BED 9 C/O POST-ICTAL STATUS S/P SEIZURE. PT HAD AN UNWITNESSED SEIZURE AND WAS FOUND POST-ICTAL ON THE FLOOR AT HOME, PER EMS REPORT. PT IS CURRENTLY POST-ICTAL, ABLE TO VERIFY HIS FULL NAME, BUT UNABLE TO STATE THE YEAR. BREATHING EVENLY AND UNLABORED. CONNECTED TO MONITOR.
--- NOTE | 2019-09-12 00:28 | NUR ---
PATIENT IS AAOX4.
[2019-09-12] MEDS ORDERED: LORAZEPAM INJ 2 MG/ML VIAL IVP ONE (00:30)
[2019-09-12] MEDS ORDERED: IV NS 0.9% 1,000 ML BAG IV ONE (00:30)
[2019-09-12] MEDS ORDERED: LORAZEPAM INJ 2 MG/ML VIAL ONE (00:35)
--- NOTE | 2019-09-12 00:39 | NUR ---
PATIENT UNWILLING TO COOPERATE TO KEEP ARM STRAIGHT FOR IV FLUIDS INFUSION. UNABLE TO PROVIDE PATIENT WITH FLUIDS. MD NOTIFIED.
[2019-09-12 00:45] LABS: BASOPHILS % (AUTO) 0.4 % (0.0-2.0); EOSINOPHILS % (AUTO) 0.1 % (0.0-6.0); HEMATOCRIT 43 % (39-51); HEMOGLOBIN 14.5 g/dL (13.5-17.5); LYMPHOCYTES # (AUTO) 1.3 /CMM (0.8-4.8); LYMPHOCYTES % (AUTO) 12.7 % (20.0-44.0); MEAN CORPUSCULAR HGB CONC 34 g/dl (31.0-36.0); MEAN CORPUSCULAR VOLUME 100 fL (80-96); MONOCYTES # (AUTO) 1.1 /CMM (0.1-1.30); MONOCYTES % (AUTO) 10.4 % (2.0-12.0); NEUTROPHILS # (AUTO) 7.9 /CMM (1.8-8.9); NEUTROPHILS % (AUTO) 76.4 % (43.0-81.0); PLATELET COUNT (AUTO) 272 /CMM (150-450); RED BLOOD CELL COUNT(AUTO) 4.28 MIL/uL (4.5-6.0); WHITE BLOOD COUNT (AUTO) 10.4 K/uL (4.3-11.0)
[2019-09-12 00:55] LABS: CALCIUM, SERUM 8.7 mg/dL (8.5-10.1); CARBON DIOXIDE 23 mmol/L (21-32); CHLORIDE 101 mmol/L (98-107); CREATININE 1.3 mg/dL (0.6-1.3); GLUCOSE 164 mg/dL (74-106); SODIUM SERUM 139 mmol/L (136-145); UREA NITROGEN, BLOOD 12 mg/dL (7-18)
[2019-09-12 00:59] LABS: ALANINE AMINOTRANSFERASE 51 U/L (12-78); ALBUMIN 3.5 g/dL (3.4-5.0); ALCOHOL, BLOOD < 3 mg/dL (0-0); ALKALINE PHOSPHATASE 107 U/L (46-116); ASPARTATE AMINOTRANSFERASE 43 U/L (15-37); BILIRUBIN,DIRECT 0.1 mg/dL (0.0-0.2); BILIRUBIN,TOTAL 0.3 mg/dL (0.2-1.0); TOTAL PROTEIN, SERUM 8.2 g/dL (6.4-8.2)
--- NOTE | 2019-09-12 01:40 | NUR ---
PATIENT UNWILLING TO COOPERATE TO KEEP ARM STRAIGHT FOR IV FLUIDS INFUSION. UNABLE TO PROVIDE PATIENT WITH FLUIDS.
[2019-09-12] MEDS ORDERED: LEVETIRACETAM (250 MG) 250 MG TABLET PO ONE ×2 (02:28→02:30)
--- NOTE | 2019-09-12 02:40 | NUR ---
IV removed. Catheter intact and site benign. Pressure and 4x4 applied to site. No bleeding noted. Patient discharged to home in stable condition. Written and verbal after care instructions given. Patient verbalizes understanding of instruction.
[2019-09-12 03:03] VITALS: BP 137/82
== END 2019-09-12 03:14 | disposition home or self-care (01) ==
LOC: ER 00:02
DX: G40.909 Epilepsy, unspecified, not intractable, without status epilepticus (principal); I10 Essential (primary) hypertension; F10.10 Alcohol abuse, uncomplicated; F17.200 Nicotine dependence, unspecified, uncomplicated; Y90.0 Blood alcohol level of less than 20 mg/100 ml; Z79.82 Long term (current) use of aspirin; Z93.0 Tracheostomy status; Z88.0 Allergy status to penicillin; Z79.899 Other long term (current) drug therapy
CPT/HCPCS: 36415; 80048; 80076; 80307; 82962; 85025; 93005; 96374; 99284; J2060; J7030; G0480

== ENCOUNTER 2022-04-18 22:37 | Inpatient (IN) | payer MEDICARE, MEDICAID ==
[~2022-04-18] VITALS: Ht 170.2 cm; Wt 73.9 kg
--- NOTE | 2022-04-18 22:50 | NUR ---
BIBRA60. S/P SEIZURE W/ HX ON KEPRA 500MG BID. X 1 EPISODE VOMMTING NO NOTED TRAUMA. PATIENT ALERT AND ORIENTED X3. AMBULATORY BUT BROUGHT IN BY STRETCHER. IN BED 10 ON MONITOR AND POX AWAITING MD LOO.
--- NOTE | 2022-04-18 23:00 | NUR ---
BLOOD COLLECTED AND SENTT O LAB
[2022-04-19 00:01] LABS: BASOPHILS % (AUTO) 0.2 % (0.0-2.0); EOSINOPHILS % (AUTO) 1.4 % (0.0-6.0); HEMATOCRIT 46 % (39-51); HEMOGLOBIN 15.1 g/dL (13.5-17.5); LYMPHOCYTES # (AUTO) 1.5 K/uL (0.8-4.8); LYMPHOCYTES % (AUTO) 24.2 % (20.0-44.0); MEAN CORPUSCULAR HGB CONC 33 g/dl (31.0-36.0); MEAN CORPUSCULAR VOLUME 99 fL (80-96); MONOCYTES # (AUTO) 0.9 K/uL (0.1-1.30); MONOCYTES % (AUTO) 13.7 % (2.0-12.0); NEUTROPHILS # (AUTO) 3.9 K/uL (1.8-8.9); NEUTROPHILS % (AUTO) 60.5 % (43.0-81.0); PLATELET COUNT (AUTO) 221 K/uL (150-450); RED BLOOD CELL COUNT(AUTO) 4.59 MIL/uL (4.5-6.0); WHITE BLOOD COUNT (AUTO) 6.4 K/uL (4.3-11.0)
[2022-04-19 00:09] LABS: CALCIUM, SERUM 9.7 mg/dL (8.5-10.1); CARBON DIOXIDE 28 mmol/L (21-32); CHLORIDE 102 mmol/L (98-107); CREATININE 1.1 mg/dL (0.6-1.3); GLUCOSE 121 mg/dL (74-106); POTASSIUM 3.8 mmol/L (3.5-5.1); SODIUM SERUM 139 mmol/L (136-145); UREA NITROGEN, BLOOD 22 mg/dL (7-18)
--- NOTE | 2022-04-19 00:12 | NUR ---
URINE COLLECTED AND SENT TO LAB
--- NOTE | 2022-04-19 00:16 | NUR ---
TROP 820
[2022-04-19 00:18] LABS: ALANINE AMINOTRANSFERASE 39 U/L (12-78); ALBUMIN 3.6 g/dL (3.4-5.0); ALCOHOL, BLOOD 6 mg/dL (0-0); ALKALINE PHOSPHATASE 96 U/L (46-116); ASPARTATE AMINOTRANSFERASE 23 U/L (15-37); BILIRUBIN,DIRECT 0.1 mg/dL (0.0-0.2); BILIRUBIN,TOTAL 0.3 mg/dL (0.2-1.0)
--- NOTE | 2022-04-19 00:21 | NUR ---
KVNG COLLECTED AND SENT TO LAB
[2022-04-19] MEDS ORDERED: ACETAMINOPHEN 325 MG TABLET PO PRN (01:00)
[2022-04-19] MEDS ORDERED: DOCUSATE SODIUM 100 MG CAPSULE PO PRN (01:00)
[2022-04-19] MEDS ORDERED: MAG HYDROX/AL HYDROX/SIMETH 30 ML UDC PO PRN (01:00)
[2022-04-19] MEDS ORDERED: NITROGLYCERIN 0.4 MG/TAB BOTTLE SL PRN (01:00)
[2022-04-19] MEDS ORDERED: LEVETIRACETAM (500MG) 1,000 MG in IV NS 0.9% 100 ML IV ONE (01:00)
[2022-04-19] MEDS ORDERED: ENOXAPARIN SODIUM 80 MG/0.8 ML DISP.SYRIN SQ ONE ×2 (01:00→01:02)
[2022-04-19] MEDS ORDERED: ONDANSETRON HCL/PF 4 MG/2 ML VIAL IVP PRN (01:00)
[2022-04-19] MEDS ORDERED: LORAZEPAM 1 MG TABLET PO PRN (01:00)
--- NOTE | 2022-04-19 02:00 | NUR ---
REPORT GIVEN TO KINGSLEY
--- NOTE | 2022-04-19 02:36 | NUR ---
pt transported to room 310-2 on quality assurance monitor body per acls protocol ion stable condition
[2022-04-19 02:45] VITALS: BP 121/80
--- NOTE | 2022-04-19 03:00 | NUR ---
DIRECTOR OF EMPLOYEE DEVELOPMENT NOTES: RECEIVED PATIENT FROM ER VIA RSUSAN AT 0230 TRANSFER TO [place] [id number] ON STABLE CONDITION, PATIENT IS AWAKE, ABLE TO TO CONVERSE AND GIVE MEANINGFUL INFORMATION, PLACE IN BED COMFORTABLY, SKIN ASSESSMENT DONE PATIENT REFUSED TO BE ASSESSED THOROUGHLY, PER PATIENT HE DOES NOT HAVE ANY SKIN ISSUES. ON TLEE MONITOR- SB-50 WITH SOME INVERTED T WAVES, PVC AND PAC NO SYMPTOMS WAS OBSERVED, PATIENT REFUSED INVENTORY ASSESSMENT OF PERSONAL BELONGING, PLACED IN BED COMFORTABLY, ORIENTED TO ROOM REMIND TO USE CALL LIGHTS WHEN NEEDED ASSISTANCE, PATIENT KEPT CLEAN AND DRY ALL NEEDS MET WILL CONTINUE TO MONITOR
[2022-04-19] MEDS ORDERED: LEVETIRACETAM (500MG) 500 MG/5 ML VIAL IV ONE (03:07)
--- NOTE | 2022-04-19 06:31 | NUR ---
RN NOTES: PATIENT REFUSED V/S MONITOR AND LABORATORY BLOOD WORKS EXPLAIN RISK AND BENEFITS BUT PATIENT REFUSED, ASKED CITRUS FRUIT PACKER TO TRY TO OFFER AGAIN AT A LATER TIME, TROPONIN FOR PATIENT IS HIGH, WILL CONTINUE TO MONITOR.
--- NOTE | 2022-04-19 06:33 | NUR ---
TRANSPORTATION DIRECTOR CLOSING NOTES: PATIENT SLEEP IN BED CONFORTABLY, AROUSABLE TO VERBAL STIMULI, BED IN LOW POSITION CALL LIGHTS WITHIN REACH, NO COMPLAIN OF PAIN AND DISCOMFORT AT THIS TIME ON ROOM AIR SATURATING WELL, PATIENT IS ON TELE MONITOR SB-56 WITH INVERTED T WAVE AND PVC AND PAC, PATIENT ON MONITOR FOR SEIZURE NO EPISODE DURING THE SHIFT, PATIENT KEPT CLEAN AND DRY ALL NEEDS MET ENDORSE TO INCOMING SHIFT.
--- NOTE | 2022-04-19 07:00 | NUR ---
HVAC JOURNEYMAN OPENING NOTES PATIENT LAYING IN BED, A/O X 4, ABLE TO MAKE NEEDS KNOWN. TOLERATING WELL ON ROOM AIR WITH NO S/S RESPIRATORY DISTRESS. NO COMPLAINTS OF PAIN OR DISCOMFORT AT THIS TIME. TELE MONITOR READING SR 60, R WRIST # 20 G SL CLEAN, INTACT, AND FLUSHING WELL. SAFETY MEASURES IN PLACE: BED IN LOWEST LOCKED POSITION, SIDE RAILS UP X 2, CALL LIGHT WITHIN REACH. WILL CONTINUE TO MONITOR.
[2022-04-19 08:20] VITALS: BP 120/74
[2022-04-19] MEDS: ASPIRIN 81 MG TAB.CHEW PO SCH ×2 (08:41→09:00)
[2022-04-19] MEDS: CARVEDILOL 6.25 MG TABLET PO SCH ×3 (08:42→20:39)
[2022-04-19] MEDS ORDERED: LEVETIRACETAM (500MG) 500 MG in IV NS 0.9% 100 ML IV SCH (09:00)
[2022-04-19 09:23] LABS: BILIRUBIN,URINE NEGATIVE (NEGATIVE); COLOR,URINE YELLOW (YELLOW); LEUKOCYTE ESTERASE ,URINE NEGATIVE (NEGATIVE); NITRITE, URINE NEGATIVE (NEGATIVE); PH,URINE 5.5 (5.0-8.0); PROTEIN,URINE NEGATIVE (NEGATIVE); UGLUCOSE NEGATIVE (NEGATIVE); UROBILINOGEN,URINE 0.2 EU/dL (0.2)
[2022-04-19 12:00] VITALS: BP 118/69
[2022-04-19 12:05] LABS: BASOPHILS % (AUTO) 0.3 % (0.0-2.0); EOSINOPHILS % (AUTO) 2.3 % (0.0-6.0); HEMATOCRIT 47 % (39-51); HEMOGLOBIN 15.4 g/dL (13.5-17.5); LYMPHOCYTES # (AUTO) 2.1 K/uL (0.8-4.8); MEAN CORPUSCULAR HGB CONC 33 g/dl (31.0-36.0); MEAN CORPUSCULAR VOLUME 99 fL (80-96); MONOCYTES # (AUTO) 0.7 K/uL (0.1-1.30); MONOCYTES % (AUTO) 10.7 % (2.0-12.0); NEUTROPHILS # (AUTO) 3.4 K/uL (1.8-8.9); NEUTROPHILS % (AUTO) 53.7 % (43.0-81.0); PLATELET COUNT (AUTO) 223 K/uL (150-450); RED BLOOD CELL COUNT(AUTO) 4.72 MIL/uL (4.5-6.0); WHITE BLOOD COUNT (AUTO) 6.3 K/uL (4.3-11.0)
[2022-04-19 12:17] LABS: ALBUMIN 3.6 g/dL (3.4-5.0); BILIRUBIN,TOTAL 0.6 mg/dL (0.2-1.0); CALCIUM, SERUM 9.3 mg/dL (8.5-10.1); CREATININE 0.9 mg/dL (0.6-1.3); MAGNESIUM 2.1 mg/dL (1.8-2.4); PHOSPHORUS 2.9 mg/dL (2.5-4.9); POTASSIUM 4.3 mmol/L (3.5-5.1); TOTAL PROTEIN, SERUM 7.9 g/dL (6.4-8.2)
[2022-04-19 12:29] LABS: THYROID STIMULATING HORMONE 0.858 uIU/mL (0.358-3.74)
[2022-04-19] MEDS: ENOXAPARIN SODIUM 80 MG/0.8 ML DISP.SYRIN SQ SCH (13:28)
[2022-04-19 16:05] VITALS: BP 105/60
--- NOTE | 2022-04-19 18:51 | NUR ---
BRACELET AND BROOCH MAKER CLOSING NOTES PATIENT LAYING IN BED, A/O X 4, ABLE TO MAKE NEEDS KNOWN. TOLERATING WELL ON ROOM AIR WITH NO S/S RESPIRATORY DISTRESS. NO COMPLAINTS OF PAIN OR DISCOMFORT AT THIS TIME. TELE MONITOR READING SINUS SHERRY 58, PATIENT PULLED OUT IV ACCESS, NO IV ACCESS PRESENT AT THIS TIME, WILL ENDORSE TO RAIL TRACK LAYER. SAFETY MEASURES IN PLACE: BED IN LOWEST LOCKED POSITION, SIDE RAILS UP X 2, CALL LIGHT WITHIN REACH. ALL NEEDS MET. WILL ENDORSE TO RAIL TRACK LAYER FOR ZBIGNIEW.
--- NOTE | 2022-04-19 19:17 | NUR ---
INJECTION MOLDER OPENING NOTES PATIENT RECEIVED RESTING IN BED COMFORTABLY; A/OX4, BREATHING EVEN AND UNLABORED; NO SOB NOTED; TOLERATING ROOM AIR WELL; ABLE TO VERBALIZE NEEDS; TELE MONITOR READS SINUS SHERRY; NO IV ACCESS; PATIENT IS REFUSING, PER PATIENT "DO NOT BOTHER ME WITH THAT". PATIENT REFUSING SKIN ASSESSMENT, NON-COMPLIANT; SAFETY PRECAUTIONS AND SEIZURE PRECAUTIONS IMPLEMENTED; BED LOCKED IN LOW POSITION; SIDE RAILSX2, CALL LIGHT WITHIN EASY REACH; WILL CONT PLAN OF CARE
[2022-04-19 20:00] VITALS: BP 105/69
[2022-04-19] MEDS: LEVETIRACETAM (250 MG) 250 MG TABLET PO SCH (21:20)
--- NOTE | 2022-04-19 21:28 | NUR ---
MS CANO NOTES PATIENT REQUESTING ANTI-ACID; MAALOX ADMINISTERED PER MD ORDER Addendum: 04/20/22 at 0159 by RAGHU YU RN ERROR; WRONG PATIENT
[2022-04-19] MEDS ORDERED: SIMVASTATIN 20 MG TABLET PO SCH (22:00)
[2022-04-20] VITALS: BP 134/78
[2022-04-20] MEDS: ENOXAPARIN SODIUM 80 MG/0.8 ML DISP.SYRIN SQ SCH (01:00)
--- NOTE | 2022-04-20 01:04 | NUR ---
SPECIAL SHOPPER NOTE PATIENT REFUSING LOVENOX, PER PATIENT ALREADY RECEIVED IN AM; PATIENT EDUCATED ON MD ORDER; PATIENT REQUESTING IF CAN BE GIVEN EARLIER TIME IF IT IS IMPORTANT FOR HIM TO RECEIVE DURING HOSPITALIZATION; PATIENT DOES NOT WANT TO BE WOKEN UP FOR INJECTION; WILL INFORM DAY SHIFT; PATIENT WOULD LIKE TO SLEEP; CHARGE NURSE AWARE;
[2022-04-20 04:00] VITALS: BP 119/63
--- NOTE | 2022-04-20 06:24 | NUR ---
GERIATRIC NURSE PRACTITIONER CLOSING NOTES PATIENT RESTING IN BED COMFORTABLY; A/OX4, BREATHING EVEN AND UNLABORED; NO SOB NOTED; TOLERATING ROOM AIR WELL; ABLE TO VERBALIZE NEEDS; TELE MONITOR READS SINUS SHERRY; NO IV ACCESS; PATIENT IS STILL REFUSING AND PATIENT REFUSING SKIN ASSESSMENT, PATIENT WANTS LOVENOX SCHEDULED TO BE CHANGED TO AN EARLIER TIME, WILL INFORM DAY SHIFT; ALL NEEDS RENDERED; SAFETY PRECAUTIONS AND SEIZURE PRECAUTIONS IMPLEMENTED; BED LOCKED IN LOW POSITION; SIDE RAILSX2, CALL LIGHT WITHIN EASY REACH; WILL ENDORSE ZBIGNIEW TO ONCOMING SHIFT
--- NOTE | 2022-04-20 08:00 | NUR ---
RN OPENING NOTE PATIENT RECEIVED IN BED, AO X 4, ABLE TO RESPONDS ALL STIMULI. IN NO ACUTE DISTRESS NOTED. RESPIRATORY EVEN AND UNLABORED ON ROOM AIR. SKIN IS WARM TO TOUCH, KEEP CLEAN/DRY. KEPT ELEVATED HOB FOR ENSURE AIRWAY AND ASPIRATION PRECAUTION, ALSO LOWEST POSITION OF THE BED, S/R UP X 2, BED ALARM IS ON AT ALL THE TIMES. ALL SAFETY PRECAUTION APPLIED. CALL LIGHT WITHIN REACH, WILL CONTINUE TO MONITOR.
[2022-04-20] MEDS: ASPIRIN 81 MG TAB.CHEW PO SCH (08:45)
[2022-04-20] MEDS: LEVETIRACETAM (250 MG) 250 MG TABLET PO SCH (08:45)
[2022-04-20 08:49] VITALS: BP 129/73
[2022-04-20] MEDS: CARVEDILOL 6.25 MG TABLET PO SCH (08:49)
[2022-04-20] MEDS ORDERED: ENOXAPARIN SODIUM 40 MG/0.4 ML DISP.SYRIN SQ SCH (09:00)
--- NOTE | 2022-04-20 11:33 | NUR ---
PATIENT RECEIVED CT ANGIOGRAM HEART WITH 3D, BUT HE WANTS TO LITTLE MOTE TIME TO SIGN OF CONSENT.
[2022-04-20] MEDS ORDERED: LEVE1000 PO (13:39)
[2022-04-20] MEDS ORDERED: SIMV-46 PO (13:39)
[2022-04-20] MEDS ORDERED: ASPI-1169 PO (13:39)
--- NOTE | 2022-04-20 15:20 | NUR ---
GIVEN DISCHARGE INSTRUCTION INCLUDE NEW MEDICATIONS AND SIDE EFFECTS. PROVIDED COPY OF CT HEAD AND LABS RESULT. PATIENT REFUSED SKIN ASSESSMENT AND BLOOD DRAW WHICH IS TROPONIN SERUM. PATIENT DENIES CHEST PAIN OR ANY DISCOMFORT, IN STABLE CONDITION. PATIENT LEFT FACILITY ACCOMPANIED BY BY STAFF AND HIS SISTER TO THE PRIVATE CAR, AND WILL STAY HIS SISTER/[facility] HOME.
== END 2022-04-20 15:30 | disposition home or self-care (01) | DRG 100 ==
LOC: ER 22:44 → TELE 04-19 01:54
PROVIDERS: ADMIT Nurse Practitioner Family; ATTEND Nurse Practitioner Family
DX: G40.909 Epilepsy, unspecified, not intractable, without status epilepticus (principal); I21.A1 Myocardial infarction type 2; F17.210 Nicotine dependence, cigarettes, uncomplicated; Z91.14 Patient's other noncompliance with medication regimen; R73.9 Hyperglycemia, unspecified; Z98.61 Coronary angioplasty status; Z20.822 Contact with and (suspected) exposure to COVID-19; Z79.899 Other long term (current) drug therapy
CPT/HCPCS: 36415; 70450-TC; 71045-TC; 80048-TC; 80053-TC; 80076-TC; 80177; 82962-TC; 83735-TC; 84100-TC; 84443-TC; 84484-TC; 85025-TC; 87081-TC; 93307-TC; C9803; G0378; G0480; J1650; J1953; J7030; J7040

== ENCOUNTER 2023-05-30 18:40 | Inpatient (IN) | payer MEDICARE, MEDICAID ==
[~2023-05-30] VITALS: Ht 167.6 cm; Wt 82.6 kg
[~2023-05-30 18:40] MED LIST changes: +LEVE1000 PO; -LEVE250T2 PO; +SIMV-46 PO
[2023-05-30 19:06] VITALS: O2SAT 97
[2023-05-30] MEDS ORDERED: LEVETIRACETAM (500MG) 1,000 MG in IV NS 0.9% 90 ML IV SCH (23:00)
[2023-05-30] MEDS ORDERED: IV NS 0.9% 1,000 ML BAG IV ONE (23:00)
[2023-05-30] MEDS ORDERED: LEVETIRACETAM (500MG) 500 MG/5 ML VIAL IV ONE (23:08)
[2023-05-30 23:21] LABS: BASOPHILS # (AUTO) 0.1 K/uL (0.0-0.2); BASOPHILS % (AUTO) 0.6 % (0.0-2.0); EOSINOPHILS # (AUTO) 0.1 K/uL (0.0-0.7); EOSINOPHILS % (AUTO) 0.5 % (0.0-6.0); HEMATOCRIT 42 % (39-51); HEMOGLOBIN 14.3 g/dL (13.5-17.5); LYMPHOCYTES # (AUTO) 2.4 K/uL (0.8-4.8); MEAN CORPUSCULAR HEMOGLOBIN 33 PG (26.0-33.0); MEAN CORPUSCULAR HGB CONC 34 g/dl (31.0-36.0); MEAN CORPUSCULAR VOLUME 98 fL (80-96); MONOCYTES # (AUTO) 1.2 K/uL (0.1-1.30); MONOCYTES % (AUTO) 11.3 % (2.0-12.0); NEUTROPHILS # (AUTO) 6.8 K/uL (1.8-8.9); NEUTROPHILS % (AUTO) 64.6 % (43.0-81.0); PLATELET COUNT (AUTO) 152 K/uL (150-450); RED BLOOD CELL COUNT(AUTO) 4.34 MIL/uL (4.5-6.0); RED CELL DISTRIBUTION WIDTH 12.7 % (11.5-15.0); WHITE BLOOD COUNT (AUTO) 10.5 K/uL (4.3-11.0)
[2023-05-30 23:30] LABS: CALCIUM, SERUM 9.1 mg/dL (8.5-10.1); CARBON DIOXIDE 28 mmol/L (21-32); CHLORIDE 103 mmol/L (98-107); CREATININE 0.9 mg/dL (0.6-1.3); GLUCOSE 165 mg/dL (74-106); POTASSIUM 3.2 mmol/L (3.5-5.1); SODIUM SERUM 139 mmol/L (136-145); UREA NITROGEN, BLOOD 5 mg/dL (7-18)
[2023-05-31] MEDS ORDERED: hydrALAZINE HCL IV 20 MG VIAL IV PRN
[2023-05-31] MEDS ORDERED: MAGNESIUM HYDROXIDE 30 ML UDC PO PRN (01:00)
[2023-05-31] MEDS ORDERED: ONDANSETRON HCL/PF 4 MG/2 ML VIAL IVP PRN (01:00)
[2023-05-31] MEDS ORDERED: MAG HYDROX/AL HYDROX/SIMETH 30 ML UDC PO PRN (01:00)
[2023-05-31] MEDS ORDERED: ZOLPIDEM TARTRATE 5 MG TABLET PO PRN (01:00)
[2023-05-31] MEDS ORDERED: ACETAMINOPHEN 325 MG TABLET PO PRN (01:00)
[2023-05-31] MEDS ORDERED: Z GUARD REMEDY 4 OZ OINT TP PRN (01:00)
[2023-05-31] MEDS ORDERED: hydrALAZINE HCL IV 20 MG VIAL ONE (02:50)
[2023-05-31 08:00] VITALS: BP 157/64; TEMP 98.6; O2SAT 94
[2023-05-31] MEDS: LEVETIRACETAM (250 MG) 250 MG TABLET PO SCH ×2 (08:44→21:12)
[2023-05-31] MEDS: ASPIRIN 81 MG TAB.CHEW PO SCH (08:44)
[2023-05-31] MEDS: CARVEDILOL 6.25 MG TABLET PO SCH ×2 (08:44→21:13)
[2023-05-31 09:26] LABS: BASOPHILS # (AUTO) 0.1 K/uL (0.0-0.2); BASOPHILS % (AUTO) 0.7 % (0.0-2.0); EOSINOPHILS # (AUTO) 0.1 K/uL (0.0-0.7); EOSINOPHILS % (AUTO) 1.1 % (0.0-6.0); HEMATOCRIT 44 % (39-51); HEMOGLOBIN 14.4 g/dL (13.5-17.5); LYMPHOCYTES # (AUTO) 2.4 K/uL (0.8-4.8); LYMPHOCYTES % (AUTO) 29.6 % (20.0-44.0); MEAN CORPUSCULAR HEMOGLOBIN 32 PG (26.0-33.0); MEAN CORPUSCULAR HGB CONC 33 g/dl (31.0-36.0); MEAN CORPUSCULAR VOLUME 97 fL (80-96); MONOCYTES # (AUTO) 1.2 K/uL (0.1-1.30); MONOCYTES % (AUTO) 14.6 % (2.0-12.0); NEUTROPHILS # (AUTO) 4.3 K/uL (1.8-8.9); PLATELET COUNT (AUTO) 220 K/uL (150-450); RED BLOOD CELL COUNT(AUTO) 4.49 MIL/uL (4.5-6.0); RED CELL DISTRIBUTION WIDTH 12.8 % (11.5-15.0)
[2023-05-31 09:55] LABS: CALCIUM, SERUM 8.7 mg/dL (8.5-10.1); CARBON DIOXIDE 27 mmol/L (21-32); CHLORIDE 105 mmol/L (98-107); CREATININE 0.8 mg/dL (0.6-1.3); GLUCOSE 156 mg/dL (74-106); PHOSPHORUS 2.4 mg/dL (2.5-4.9); POTASSIUM 3.1 mmol/L (3.5-5.1); SODIUM SERUM 140 mmol/L (136-145); UREA NITROGEN, BLOOD 4 mg/dL (7-18)
[2023-05-31] MEDS: POTASSIUM CHLORIDE 20 MEQ TAB.PRT.SR PO SCH ×2 (10:03→10:45)
[2023-05-31] MEDS: ENOXAPARIN SODIUM 80 MG/0.8 ML DISP.SYRIN SQ SCH ×2 (10:06→21:14)
[2023-05-31 10:13] LABS: CHOLESTEROL 181 mg/dL (<200); HDL CHOLESTEROL 90 mg/dL (40-60); LDL 86 mg/dL (0-99); TRIGLYCERIDES 58 mg/dL (30-150)
[2023-05-31 15:23] LABS: APPEARANCE,URINE CLEAR (CLEAR); BILIRUBIN,URINE NEGATIVE (NEGATIVE); BLOOD, URINE NEGATIVE Ery/uL (NEGATIVE); COLOR,URINE YELLOW (YELLOW); KETONES,URINE NEGATIVE (NEGATIVE); LEUKOCYTE ESTERASE ,URINE NEGATIVE (NEGATIVE); NITRITE, URINE NEGATIVE (NEGATIVE); PH,URINE 5.5 (5.0-8.0); PROTEIN,URINE NEGATIVE (NEGATIVE); UGLUCOSE NEGATIVE (NEGATIVE)
[2023-05-31 15:31] LABS: ADD URINE CULTURE NO; BACTERIA,URINE None seen /HPF (None Seen); RBC,URINE 0-2 /HPF (0-2); SQUAMOUS EPITHELIAL CELL,UR 0-2 /HPF (None Seen); WBC,URINE 0-2 /HPF (0-3)
[2023-05-31 16:00] VITALS: BP 159/85; TEMP 98.2; O2SAT 96
[2023-05-31] MEDS ORDERED: NEUTRA PHOS 1 POWD.PACKET PO ONE (16:00)
[2023-05-31 20:00] VITALS: BP 148/83; TEMP 98.4; O2SAT 98
[2023-05-31] MEDS: ATORVASTATIN 40 MG TABLET PO SCH (21:13)
[2023-06-01] VITALS: BP 145/80; TEMP 98; O2SAT 98
[2023-06-01 04:00] VITALS: BP 149/85; TEMP 98.2; O2SAT 98
[2023-06-01 09:30] LABS: BASOPHILS % (AUTO) 0.4 % (0.0-2.0); EOSINOPHILS # (AUTO) 0.1 K/uL (0.0-0.7); EOSINOPHILS % (AUTO) 1.7 % (0.0-6.0); HEMATOCRIT 43 % (39-51); HEMOGLOBIN 14.6 g/dL (13.5-17.5); LYMPHOCYTES # (AUTO) 2.3 K/uL (0.8-4.8); LYMPHOCYTES % (AUTO) 31.9 % (20.0-44.0); MEAN CORPUSCULAR HEMOGLOBIN 33 PG (26.0-33.0); MEAN CORPUSCULAR HGB CONC 34 g/dl (31.0-36.0); MEAN CORPUSCULAR VOLUME 98 fL (80-96); MONOCYTES % (AUTO) 13.5 % (2.0-12.0); NEUTROPHILS # (AUTO) 3.8 K/uL (1.8-8.9); NEUTROPHILS % (AUTO) 52.5 % (43.0-81.0); PLATELET COUNT (AUTO) 226 K/uL (150-450); RED BLOOD CELL COUNT(AUTO) 4.42 MIL/uL (4.5-6.0); RED CELL DISTRIBUTION WIDTH 12.9 % (11.5-15.0); WHITE BLOOD COUNT (AUTO) 7.3 K/uL (4.3-11.0)
[2023-06-01] MEDS: ASPIRIN 81 MG TAB.CHEW PO SCH (10:06)
[2023-06-01] MEDS: hydrALAZINE HCL 50 MG TABLET PO SCH ×3 (10:06→16:34)
[2023-06-01] MEDS: CARVEDILOL 6.25 MG TABLET PO SCH ×2 (10:07→20:58)
[2023-06-01] MEDS: ENOXAPARIN SODIUM 80 MG/0.8 ML DISP.SYRIN SQ SCH ×2 (10:07→20:58)
[2023-06-01] MEDS: LEVETIRACETAM (250 MG) 250 MG TABLET PO SCH ×2 (10:07→20:58)
[2023-06-01] MEDS: NITROGLYCERIN 30 GM TUBE TP SCH ×2 (10:11→21:12)
[2023-06-01 10:14] LABS: ALBUMIN 2.8 g/dL (3.4-5.0); BILIRUBIN,TOTAL 0.9 mg/dL (0.2-1.0); CALCIUM, SERUM 8.9 mg/dL (8.5-10.1); CREATININE 0.8 mg/dL (0.6-1.3); MAGNESIUM 2.1 mg/dL (1.8-2.4); PHOSPHORUS 2.5 mg/dL (2.5-4.9); POTASSIUM 3.7 mmol/L (3.5-5.1); TOTAL PROTEIN, SERUM 7.2 g/dL (6.4-8.2)
[2023-06-01 20:00] VITALS: BP_SYST 105; BP_SYST 125; BP_DIAS 66; TEMP 98.1; O2SAT 98
[2023-06-01] MEDS: ATORVASTATIN 40 MG TABLET PO SCH (21:26)
[2023-06-02 08:28] VITALS: BP 123/90; TEMP 98.5; O2SAT 97
[2023-06-02] MEDS ORDERED: CARVEDILOL 12.5 MG TABLET PO SCH (09:00)
[2023-06-02] MEDS: ASPIRIN 81 MG TAB.CHEW PO SCH (09:18)
[2023-06-02] MEDS: LEVETIRACETAM (250 MG) 250 MG TABLET PO SCH (09:18)
[2023-06-02] MEDS: hydrALAZINE HCL 50 MG TABLET PO SCH ×2 (09:19→13:13)
[2023-06-02] MEDS: NITROGLYCERIN 30 GM TUBE TP SCH (09:20)
[2023-06-02] MEDS ORDERED: CARV12.52 PO (10:57)
[2023-06-02 13:13] VITALS: BP 130/68
== END 2023-06-02 14:20 | disposition home or self-care (01) | DRG 100 ==
LOC: ER 18:43 → TELE 23:45 → MED 06-02 08:44
PROVIDERS: ADMIT Nurse Practitioner Acute Care; ATTEND Nurse Practitioner Acute Care
DX: G40.909 Epilepsy, unspecified, not intractable, without status epilepticus (principal); I21.A1 Myocardial infarction type 2; J98.11 Atelectasis; E87.6 Hypokalemia; F17.210 Nicotine dependence, cigarettes, uncomplicated; Z91.148 Patient's other noncompliance with medication regimen for other reason; Z88.0 Allergy status to penicillin; Z86.61 Personal history of infections of the central nervous system; Z87.828 Personal history of other (healed) physical injury and trauma; Z91.199 Patient's noncompliance with other medical treatment and regimen due to unspecified reason; I25.2 Old myocardial infarction; Z91.81 History of falling; Z79.82 Long term (current) use of aspirin; Z79.899 Other long term (current) drug therapy; Z82.49 Family history of ischemic heart disease and other diseases of the circulatory system
CPT/HCPCS: 36415; 70450-TC; 71045-TC; 80048-TC; 80053-TC; 80061-TC; 80177; 81001; 83735-TC; 84100-TC; 84484-TC; 85025-TC; 93307-TC; 97116-TC; 97530-TC; G0378; J0360; J1650; J1953; J7030

== ENCOUNTER 2024-06-12 21:14 | Inpatient (IN) | payer MEDICARE, MEDICAID ==
[~2024-06-12] VITALS: Ht 167.6 cm; Wt 77.1 kg
[~2024-06-12 21:14] MED LIST changes: +CARV12.52 PO
[2024-06-12 22:22] LABS: BASOPHILS % (AUTO) 0.1 % (0.0-2.0); EOSINOPHILS # (AUTO) 0.2 K/uL (0.0-0.7); EOSINOPHILS % (AUTO) 2.6 % (0.0-6.0); HEMATOCRIT 41 % (39-51); HEMOGLOBIN 13.8 g/dL (13.5-17.5); LYMPHOCYTES # (AUTO) 4.3 K/uL (0.8-4.8); MEAN CORPUSCULAR HEMOGLOBIN 34 PG (26.0-33.0); MEAN CORPUSCULAR HGB CONC 33 g/dl (31.0-36.0); MEAN CORPUSCULAR VOLUME 101 fL (80-96); MONOCYTES # (AUTO) 1.2 K/uL (0.1-1.30); MONOCYTES % (AUTO) 14.5 % (2.0-12.0); NEUTROPHILS # (AUTO) 2.7 K/uL (1.8-8.9); NEUTROPHILS % (AUTO) 31.8 % (43.0-81.0); PLATELET COUNT (AUTO) 235 K/uL (150-450); RED BLOOD CELL COUNT(AUTO) 4.09 MIL/uL (4.5-6.0); RED CELL DISTRIBUTION WIDTH 14.2 % (11.5-15.0); WHITE BLOOD COUNT (AUTO) 8.4 K/uL (4.3-11.0)
[2024-06-12 22:34] LABS: CALCIUM, SERUM 8.8 mg/dL (8.5-10.1); CARBON DIOXIDE 28 mmol/L (21-32); CHLORIDE 103 mmol/L (98-107); CREATININE 1.4 mg/dL (0.6-1.3); GLUCOSE 140 mg/dL (74-106); POTASSIUM 4.4 mmol/L (3.5-5.1); SODIUM SERUM 139 mmol/L (136-145); UREA NITROGEN, BLOOD 32 mg/dL (7-18)
[2024-06-12 22:48] LABS: ALANINE AMINOTRANSFERASE 25 U/L (12-78); ALBUMIN 3.3 g/dL (3.4-5.0); ALCOHOL, BLOOD < 3 mg/dL (0-10); ALKALINE PHOSPHATASE 93 U/L (46-116); ASPARTATE AMINOTRANSFERASE 13 U/L (15-37); BILIRUBIN,TOTAL 0.3 mg/dL (0.2-1.0); NT-PRO BNP 355 pg/mL (0-125); TOTAL PROTEIN, SERUM 7.7 g/dL (6.4-8.2)
[2024-06-12 22:55] LABS: ACETAMINOPHEN <10 ug/ml (10-30); SALICYLATE 2.2 mg/dL (2.8-20.0)
[2024-06-12 23:26] LABS: APPEARANCE,URINE CLEAR (CLEAR); BILIRUBIN,URINE NEGATIVE (NEGATIVE); BLOOD, URINE NEGATIVE Ery/uL (NEGATIVE); COLOR,URINE YELLOW (YELLOW); KETONES,URINE NEGATIVE (NEGATIVE); LEUKOCYTE ESTERASE ,URINE NEGATIVE (NEGATIVE); NITRITE, URINE NEGATIVE (NEGATIVE); PROTEIN,URINE NEGATIVE (NEGATIVE); UGLUCOSE 3+ mg/dL (NEGATIVE); UROBILINOGEN,URINE 0.2 EU/dL (0.2)
[2024-06-13 00:10] LABS: AMPHETAMINE, URINE NEGATIVE (NEGATIVE); BARBITURATE, URINE NEGATIVE (NEGATIVE); BENZODIAZEPINE, URINE NEGATIVE (NEGATIVE); COCCAINE, URINE NEGATIVE (NEGATIVE); OPIATE, URINE NEGATIVE (NEGATIVE); PHENCYCLIDINE SCREEN,URINE NEGATIVE (NEGATIVE)
[2024-06-13 00:11] LABS: CANNABINOID, URINE POSITIVE (NEGATIVE)
[2024-06-13 00:26] LABS: ADD URINE CULTURE NO; BACTERIA,URINE None seen /HPF (None Seen); RBC,URINE NONE SEEN /HPF (0-2); WBC,URINE NONE SEEN /HPF (0-3)
[2024-06-13] MEDS ORDERED: ACETAMINOPHEN 325 MG TABLET PO PRN (01:00)
[2024-06-13] MEDS ORDERED: ZOLPIDEM TARTRATE 5 MG TABLET PO PRN (01:00)
[2024-06-13] MEDS ORDERED: MAGNESIUM HYDROXIDE 30 ML UDC PO PRN (01:00)
[2024-06-13] MEDS ORDERED: Z GUARD REMEDY 4 OZ OINT TP PRN (01:00)
[2024-06-13] MEDS ORDERED: ONDANSETRON HCL/PF 4 MG/2 ML VIAL IVP PRN (01:00)
[2024-06-13] MEDS ORDERED: MAG HYDROX/AL HYDROX/SIMETH 30 ML UDC PO PRN (01:00)
[2024-06-13 02:30] VITALS: BP 106/56; TEMP 97.9; O2SAT 95
[2024-06-13 08:00] VITALS: BP 113/65; TEMP 98.1; O2SAT 95
[2024-06-13] MEDS: LEVETIRACETAM (250 MG) 250 MG TABLET PO SCH (08:34)
[2024-06-13] MEDS: ASPIRIN 81 MG TAB.CHEW PO SCH (08:34)
[2024-06-13] MEDS: CARVEDILOL 12.5 MG TABLET PO SCH (08:35)
[2024-06-13] MEDS ORDERED: LACT1CAP7 PO (08:48)
[2024-06-13] MEDS ORDERED: AMIO200T5 PO (08:48)
[2024-06-13] MEDS ORDERED: CRANBERRY PO (08:48)
[2024-06-13] MEDS ORDERED: INSU100I30 SQ (08:48)
[2024-06-13] MEDS ORDERED: ISOS10TA2 PO (08:48)
[2024-06-13] MEDS ORDERED: METO25TA20 PO (08:48)
[2024-06-13] MEDS ORDERED: EMPA10TA PO (08:48)
[2024-06-13] MEDS ORDERED: INSU100V39 SQ (08:48)
[2024-06-13] MEDS ORDERED: SACU1TAB PO (08:48)
[2024-06-13] MEDS ORDERED: LEVE500T20 PO (08:48)
[2024-06-13] MEDS ORDERED: CRAN3875 PO (08:48)
[2024-06-13] MEDS ORDERED: MAGN400O6 PO (08:48)
[2024-06-13 12:00] VITALS: BP 129/74; TEMP 98.4; O2SAT 96
[2024-06-13] MEDS: IV NS 0.9% 1,000 ML IV PRN (15:19)
[2024-06-13 16:00] VITALS: BP 113/65; TEMP 98.1; O2SAT 95
[2024-06-13 20:00] VITALS: BP 110/65; TEMP 98.2; O2SAT 100; O2SAT 95
[2024-06-13] MEDS: ATORVASTATIN 40 MG TABLET PO SCH (21:56)
[2024-06-14] VITALS: BP 112/70; TEMP 97.9; O2SAT 97
[2024-06-14 04:00] VITALS: BP 111/81; TEMP 98; O2SAT 100
[2024-06-14 08:28] VITALS: BP 140/71; TEMP 98.1; O2SAT 100
[2024-06-14 12:00] VITALS: BP 128/78; TEMP 98.1; O2SAT 100
[2024-06-14] MEDS ORDERED: CT SWABBABLE VALVE TRANS SET 1 EA INFUS.SET MC ONE (12:08)
[2024-06-14] MEDS ORDERED: IOHEXOL-350 100 ML VIAL IV ONE (12:08)
[2024-06-14] MEDS ORDERED: IV NS 0.9% 250 ML IV ONE (12:08)
[2024-06-14] MEDS ORDERED: NITROGLYCERIN 0.4 MG/TAB BOTTLE ONE (12:09)
[2024-06-14 12:27] VITALS: BP 111/71
[2024-06-14] MEDS: NITROGLYCERIN 0.4 MG/TAB BOTTLE SL ONE (12:27)
[2024-06-14 16:43] LABS: BASOPHILS % (AUTO) 0.7 % (0.0-2.0); EOSINOPHILS # (AUTO) 0.1 K/uL (0.0-0.7); EOSINOPHILS % (AUTO) 1.9 % (0.0-6.0); HEMATOCRIT 37 % (39-51); HEMOGLOBIN 12.3 g/dL (13.5-17.5); LYMPHOCYTES # (AUTO) 1.4 K/uL (0.8-4.8); LYMPHOCYTES % (AUTO) 24.1 % (20.0-44.0); MEAN CORPUSCULAR HEMOGLOBIN 33 PG (26.0-33.0); MEAN CORPUSCULAR HGB CONC 33 g/dl (31.0-36.0); MEAN CORPUSCULAR VOLUME 100 fL (80-96); MONOCYTES # (AUTO) 0.7 K/uL (0.1-1.30); MONOCYTES % (AUTO) 12.5 % (2.0-12.0); NEUTROPHILS # (AUTO) 3.6 K/uL (1.8-8.9); NEUTROPHILS % (AUTO) 60.8 % (43.0-81.0); PLATELET COUNT (AUTO) 210 K/uL (150-450); RED BLOOD CELL COUNT(AUTO) 3.69 MIL/uL (4.5-6.0); RED CELL DISTRIBUTION WIDTH 14.5 % (11.5-15.0); WHITE BLOOD COUNT (AUTO) 5.9 K/uL (4.3-11.0)
[2024-06-14 17:34] LABS: MAGNESIUM 2.1 mg/dL (1.8-2.4); PHOSPHORUS 3.5 mg/dL (2.5-4.9)
== END 2024-06-14 19:01 | DRG 682 ==
LOC: ER 21:25 → TELE 06-13 01:35
DX: N17.9 Acute kidney failure, unspecified (principal); I21.A1 Myocardial infarction type 2; E11.9 Type 2 diabetes mellitus without complications; E78.5 Hyperlipidemia, unspecified; I48.91 Unspecified atrial fibrillation; G40.909 Epilepsy, unspecified, not intractable, without status epilepticus; I10 Essential (primary) hypertension; Z86.73 Personal history of transient ischemic attack (TIA), and cerebral infarction without residual deficits; F03.90 Unspecified dementia, unspecified severity, without behavioral disturbance, psychotic disturbance, mood disturbance, and anxiety; I25.10 Atherosclerotic heart disease of native coronary artery without angina pectoris; I25.2 Old myocardial infarction; K46.9 Unspecified abdominal hernia without obstruction or gangrene; Z88.0 Allergy status to penicillin; Z93.0 Tracheostomy status; Z98.890 Other specified postprocedural states; Z79.899 Other long term (current) drug therapy; Z79.82 Long term (current) use of aspirin; R79.89 Other specified abnormal findings of blood chemistry; F12.90 Cannabis use, unspecified, uncomplicated; Z82.49 Family history of ischemic heart disease and other diseases of the circulatory system; F17.200 Nicotine dependence, unspecified, uncomplicated
CPT/HCPCS: 36415; 71045-TC; 75574; 80053-TC; 80061-TC; 81001; 83735-TC; 83880; 84100-TC; 84484-TC; 85025-TC; 87081-TC; 97110-TC; 97112-TC; 97530-TC; A4223; G0378; G0480; J7030; J7050; Q9967